=== PATIENT | male | born 1950 | race Native Hawaiian/Other Pacific Islander ===

== ENCOUNTER 2018-11-27 14:13 | Outpatient (CLI) | payer OTHER ==
[2018-11-27 14:46] LABS: PLATELET COUNT 66 K/uL (142-355)
== END 2018-11-27 23:09 | disposition home or self-care (01) ==
LOC: LAB 14:13
PROVIDERS: Internal Medicine Hematology & Oncology
DX: I10 Essential (primary) hypertension (principal); D46.9 Myelodysplastic syndrome, unspecified
CPT/HCPCS: 85027

== ENCOUNTER 2018-12-11 14:28 | Outpatient (CLI) | payer OTHER ==
[2018-12-11 15:42] LABS: PLATELET COUNT 61 K/uL (142-355)
== END 2018-12-11 23:55 | disposition home or self-care (01) ==
LOC: LAB 14:28
PROVIDERS: Internal Medicine Hematology & Oncology
DX: D64.9 Anemia, unspecified (principal); J44.9 Chronic obstructive pulmonary disease, unspecified
CPT/HCPCS: 85027